=== PATIENT | male | born 1965 | race Two or more races ===

== ENCOUNTER 2018-08-03 20:57 | Emergency (ER) | payer OTHER, MEDICAID ==
[~2018-08-03] VITALS: Ht 170.2 cm; Wt 81.6 kg
[2018-08-03 21:00] VITALS: BP 125/79
[2018-08-03] MEDS ORDERED: NKM (21:10)
[2018-08-03] MEDS ORDERED: IBUPROFEN600 MG ORAL (21:28)
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
[2018-08-03 21:50] VITALS: BP 124/80
--- NOTE | 2018-08-04 13:22 | Diagnostic Imaging Report ---
Indication: Neck Pain Findings: 3 views of the cervical spine were obtained. Mild degenerative changes of the cervical spine are demonstrated. This is characterized by vertebral endplate osteophyte formation and narrowing of intervertebral discs. There is no acute fracture identified. Alignment is normal. The open-mouth odontoid view shows an intact dens and good alignment of the lateral masses with respect to the body of C2. There is no soft tissue swelling. Impression: Mild spondylosis
--- NOTE | 2018-08-04 13:32 | Diagnostic Imaging Report ---
Indication: Dyspnea Comparison: None A single view chest radiograph was obtained. Findings: Cardiomediastinal appearance is within normal limits for age. The lungs are clear. Pulmonary vascularity is appropriate. The diaphragmatic contour is smooth and costophrenic angles are sharp. No pleural effusions are identified. The bones are unremarkable. Impression: No acute findings
== END 2018-08-03 21:50 | disposition home or self-care (01) ==
LOC: EMR 21:30
DX: S16.1XXA Strain of muscle, fascia and tendon at neck level, initial encounter (principal); S20.219A Contusion of unspecified front wall of thorax, initial encounter; V43.52XA Car driver injured in collision with other type car in traffic accident, initial encounter; Y92.410 Unspecified street and highway as the place of occurrence of the external cause
CPT/HCPCS: 71045; 72040; 99284